=== PATIENT | male | born 1990 | race Two or more races ===

== ENCOUNTER 2022-08-15 08:30 | Outpatient (REF) | payer MEDICAID, SELFPAY ==
[2022-08-16 02:25] LABS: CT PCR NOT DETECTED (Not Detect.); NG PCR NOT DETECTED (Not Detect.)
== END 2022-08-15 08:31 | disposition home or self-care (01) ==
LOC: HO.LAB 08:30
PROVIDERS: Visit Provider Student in an Organized Health Care Education/Training Program
DX: Z00.00 Encounter for general adult medical examination without abnormal findings (principal)
CPT/HCPCS: 0353U